=== PATIENT | female | born 1950 | race Caucasian/White ===

== ENCOUNTER → 2016-08-28 | Day surgery (SDC) | payer OTHER ==
[~2016-08-28] MED LIST: BUPIVACAINE/EPINEPHRINE 0.25% PF 30 ML VIAL ONE; LACTATED RINGER'S 1000 ML INJ 1,000 ML ONE; MIDAZOLAM HCL 2 MG/2 ML VIAL ONE; ONDANSETRON HCL 4 MG/2 ML VIAL IV PUSH ONE; PROPOFOL 200 MG/20 ML AMP IV ONE; ceFAZolin 2 GM PREMIX 50 ML ONE
--- NOTE | 2016-08-28 13:04 | TN ---
cc: JOSE DANIEL M.D. DATE OF SURGERY 08/28/2016 PREOPERATIVE DIAGNOSES 1. A 2-cm left neck mass. 2. Possible left midabdomen spigelian hernia. POSTOPERATIVE DIAGNOSES 1. A 2-cm left neck mass. 2. No evidence of spigelian hernia. 3. Adhesions right lower quadrant. PROCEDURE PERFORMED 1. Diagnostic laparoscopy. 2. Lysis of adhesions. 3. Wide excision 2 cm left neck mass. SURGEON Jose Daniel MD ANESTHESIA General LMA. COMPLICATIONS None. INDICATIONS FOR PROCEDURE Ms. Curry is a [employer] pleasant 65-year-old female who noted a symptomatic mass in the left side of her neck just posterior to her jaw. This was causing her some discomfort. She felt like it was getting a little bit bigger. She denied any previous episodes of drainage or any injury to the area. On physical exam she had a 2-cm subcutaneous mass, possible sebaceous cyst versus lymph node. I recommended excision for diagnostic and therapeutic purposes. During her office evaluation the patient also reported what she thought was an intermittent left mid-abdominal mass with some gurgling. She was concerned about this being a possible hernia. By physical exam I could not appreciate a hernia. I discussed with the patient that we could certainly stick a laparoscope in and formally evaluate the area from the intraperitoneal perspective. The patient was agreeable to this. If there was a spigelian hernia we would obviously fix it. DETAILS The patient was identified, brought to the operating room, placed supine on the operating room table. After adequate general anesthesia was achieved with LMA, the anterior abdomen was prepped and draped in standard surgical fashion. 0.25% Marcaine was injected in the infraumbilical space. Infraumbilical incision was made. Dissection was carried down through the subcutaneous tissue to the midline fascia. The midline fascia was then incised sharply. A finger was then placed in the peritoneal cavity without difficulty. Blunt balloon trocar was inserted and the abdomen was insufflated with 15 mmHg using CO2 gas. The 30-degree laparoscope was inserted. We at first directed out attention to the left middle quadrant. The patient marked the area that was bothering her. We used a local the local 25-gauge needle to evaluate where this location was from an intraperitoneal perspective. The needle was photographed in place. There was no evidence of a hernia where the patient localized the pain. We then briefly explored the abdomen. The patient had a fatty falciform ligament which was photographed. The patient has some omental adhesions in the right lower quadrant of the abdominal wall. These were taken down with sharp and blunt dissection. These were mainly omental adhesions which came down. The small bowel was seen to be actively peristalsing. The colon was visualized and there were no gross abnormalities that we could appreciate. We did place a second 5-mm trocar in the left lower quadrant to formally evaluate the umbilical region and the region that the patient had the pain from a different perspective. This was done after anesthetizing the skin and subcutaneous tissue. Trocars were placed under direct vision. Again we formally evaluated the umbilical region as well as the left middle quadrant and there was no evidence of a hernia. The patient did have a large amount of fat around the umbilicus but we could not appreciate hernia both from an external or internal perspective. We went ahead and removed the umbilical port and closed the fascia using a 0 Vicryl. The abdomen was then reinsufflated using the 5-mm port in the left lower quadrant and again this area was carefully inspected. The fascial repair was quite good. There was no evidence of a defect or hernia. Again we formally evaluated both the umbilical and left lower quadrant area and we could not appreciate an obvious hernia. At this point I felt comfortable with good evaluation of the abdominal cavity. The abdomen was carefully desufflated, 5-mm trocar was removed and the skin was closed with 4-0 Vicryl in the left lower quadrant. Umbilical skin was also closed with a 4-0 Vicryl. Attention was now directed to the left neck mass. The left neck mass was palpated and marked in the preoperative holding area. An elliptical line was drawn along the mass using the patient's natural neck lines. 0.25% Marcaine was injected. An elliptical incision was made directly overlying the mass with care not to injure or open the capsule. The mass was excised from subcutaneous fat using sharp dissection. The mass freed up completely. The mass was then excised and sent to pathology. The wound was irrigated normal saline solution. The wound was then closed in two layers using a 4-0 Vicryl. Sterile dressings were applied and the patient was awakened and brought to Recovery in stable condition. MD ANALI Ca /12:36 PM /12:49 PM
== END | disposition home or self-care (01) ==
LOC: ESDC 09:34
PROVIDERS: ATTEND Surgery Trauma Surgery
DX: L72.0 Epidermal cyst (principal); K66.0 Peritoneal adhesions (postprocedural) (postinfection)
CPT/HCPCS: 00300; 00840; 11422; 49329; 88304; J0690; J2250; J2405; J3010; J7120; 88305